=== PATIENT | female | born 1995 | race Caucasian/White ===

== ENCOUNTER 2017-11-07 21:03 | Emergency (ER) | payer OTHER ==
[~2017-11-07] VITALS: Ht 162.5 cm; Wt 104.3 kg
[~2017-11-07 21:03] MED LIST: AMOXIL500 MG PO; ATARAX25 MG PO; AUGMENTIN 875 M1 TAB PO; AUGMENTIN 875875 MG PO; BACTRIM DS 8001 TA1 PO; BENTYL2 MG/ML PO; BIRTH CONTROL1 EAC1 PO; CENTRUM1 TA1 PO; CLARITIN10 MG PO; FLUCONAZOLE100 MG PO; IBU-8800 MG PO; KEFLEX500 MG PO; LAMICTAL100 MG PO; LIDEX0.05% T; MEDROL DOSEPAK4 MG PO; MOTRIN400 MG PO; MOTRIN600 MG PO; MOTRIN800 MG PO; MULTIVITAMIN FO1 CAP PO; Motrin,Rufen800 MG PO; NASONEX0.05 MG/AC NAS; NORCO 325 MG-51 TAB PO; NORFLEX100 MG PO; Orphenadrine C100 MG PO; PEN-VEE K500 MG PO; POLY VI SOL,MUL50 ML PO; PREDNICOT20 MG PO; PREDNISONE20 M1 PO; PRISTIQ50 MG PO; SINGULAIR10 MG PO; WELLBUTRIN75 MG PO; ZITHROMAX Z PA250 MG PO; ZOFRAN ODT4 MG SL; ZOLOFT100 MG PO; [UNRECOGNIZED DRUG - OTHER]
[2017-11-07 21:10] VITALS: BP 134/84
[2017-11-07] MEDS ORDERED: TAMIFLU 75MG CA75 MG PO (21:59)
== END 2017-11-07 22:12 | disposition home or self-care (01) ==
LOC: ED 21:03
DX: B34.9 Viral infection, unspecified (principal); Z98.890 Other specified postprocedural states

== ENCOUNTER 2018-01-25 17:00 | Emergency (ER) | payer MEDICAID ==
[~2018-01-25 17:00] MED LIST changes: +TAMIFLU 75MG CA75 MG PO
[2018-01-25 17:51] LABS: BILIRUBIN NEGATIVE (NEGATIVE); BLOOD 3+ (NEGATIVE); CLARITY SL CLOUDY (CLEAR); COLOR YELLOW (YELLOW); GLUCOSE NEGATIVE (NEGATIVE); KETONE NEGATIVE (NEGATIVE); LEUKO ESTERASE NEGATIVE (NEGATIVE); NITRITE NEGATIVE (NEGATIVE); UROBILINOGEN 0.2 E.U./dl (0.2-1.0)
[2018-01-25 17:57] LABS: BASO # 0.1 10*3/uL (0.0-0.1); BASO % 0.6 % (0.0-1.0); EOS # 0.1 10*3/uL (0.0-0.4); EOS % 0.6 % (1.0-4.0); HEMATOCRIT 43.4 % (37.0-47.0); HEMOGLOBIN 14.3 g/dl (12.0-16.0); LYMPH # 3.3 10*3/uL (1.3-4.4); LYMPH % 32.1 % (27.0-41.0); MEAN CELL VOLUME 88.9 fl (81.0-99.0); MEAN CORPUSCULAR HGB 29.3 pg (27.0-31.0); MEAN CORPUSCULAR HGB CONC 32.9 g/dl (33.0-37.0); MEAN PLATELET VOLUME 10.8 fl (9.6-12.3); MONO # 0.6 10*3/uL (0.1-1.0); MONO % 5.8 % (3.0-9.0); NEUT # 6.3 10*3/uL (2.3-7.9); NEUT % 60.5 % (47.0-73.0); PLATELET COUNT AUTOMATED 328 10*3/uL (130-400); RED BLOOD COUNT 4.88 10*6/uL (4.10-5.10); RED CELL DISTRI WIDTH 12.1 % (0-14.5); WHITE BLOOD COUNT 10.4 10*3/uL (4.8-10.8)
[2018-01-25 17:58] LABS: RBC TNTC rbc/hpf (0-2); WBC 0-2 wbc/hpf (0-5)
[2018-01-25 17:59] LABS: BACTERIA TRACE
[2018-01-25 18:13] LABS: ALKALINE PHOSPHATASE 60 U/L (45-117); BUN 7 mg/dl (7-24); CHLORIDE 106 mmol/L (98-107); CREATININE 0.65 mg/dL (0.55-1.02); POTASSIUM 4.1 mmol/L (3.5-5.1); SGOT/AST 37 IU/L (3-35); SGPT/ALT 52 U/L (12-78); SODIUM 140 mmol/L (136-145); TOTAL PROTEIN 7.2 gm/dL (6.4-8.2)
[2018-01-25] MEDS ORDERED: NAPROSYN500 MG PO (18:19)
[2018-01-25 18:24] VITALS: BP 130/70
== END 2018-01-25 18:24 | disposition home or self-care (01) ==
LOC: ED 17:00
PROVIDERS: Nurse Practitioner Family
DX: N93.8 Other specified abnormal uterine and vaginal bleeding (principal); Z98.890 Other specified postprocedural states; Z79.899 Other long term (current) drug therapy

== ENCOUNTER 2019-06-10 19:45 | Emergency (ER) | payer MEDICAID ==
[~2019-06-10] VITALS: Ht 162.5 cm
[~2019-06-10 19:45] MED LIST changes: +NAPROSYN500 MG PO
[2019-06-10 19:47] VITALS: BP 139/96
[2019-06-10 20:09] LABS: BILIRUBIN NEGATIVE (NEGATIVE); BLOOD TRACE-INTACT (NEGATIVE); CLARITY SL CLOUDY (CLEAR); COLOR YELLOW (YELLOW); GLUCOSE NEGATIVE (NEGATIVE); KETONE NEGATIVE (NEGATIVE); LEUKO ESTERASE NEGATIVE (NEGATIVE); NITRITE NEGATIVE (NEGATIVE); UROBILINOGEN 0.2 E.U./dl (0.2-1.0)
[2019-06-10 20:27] LABS: BACTERIA 2+; RBC 0-2 rbc/hpf (0-2)
== END 2019-06-10 20:37 | disposition home or self-care (01) ==
LOC: ED 19:45
PROVIDERS: Nurse Practitioner Family
DX: B37.3 Candidiasis of vulva and vagina (principal); Z79.899 Other long term (current) drug therapy

== ENCOUNTER 2019-09-17 07:59 | Inpatient (IN) | payer SELFPAY ==
[~2019-09-17] VITALS: Ht 162.6 cm; Wt 140.7 kg
[2019-09-17 08:01] VITALS: BP 146/84
[2019-09-17 08:25] LABS: BASO # 0.1 10*3/uL (0.0-0.1); BASO % 0.6 % (0.0-1.0); EOS # 0.1 10*3/uL (0.0-0.4); EOS % 0.6 % (1.0-4.0); HEMATOCRIT 44.8 % (37.0-47.0); HEMOGLOBIN 14.5 g/dl (12.0-16.0); LYMPH # 3.9 10*3/uL (1.3-4.4); LYMPH % 28.5 % (27.0-41.0); MEAN CORPUSCULAR HGB 29.1 pg (27.0-31.0); MEAN CORPUSCULAR HGB CONC 32.4 g/dl (33.0-37.0); MEAN PLATELET VOLUME 11.1 fl (9.6-12.3); MONO # 0.9 10*3/uL (0.1-1.0); MONO % 6.4 % (3.0-9.0); NEUT # 8.7 10*3/uL (2.3-7.9); NEUT % 63.5 % (47.0-73.0); PLATELET COUNT AUTOMATED 356 10*3/uL (130-400); RED BLOOD COUNT 4.98 10*6/uL (4.10-5.10); RED CELL DISTRI WIDTH 12.1 % (0-14.5); WHITE BLOOD COUNT 13.7 10*3/uL (4.8-10.8)
[2019-09-17 08:26] LABS: BILIRUBIN NEGATIVE (NEGATIVE); BLOOD 3+ (NEGATIVE); CLARITY CLOUDY (CLEAR); COLOR YELLOW (YELLOW); GLUCOSE NEGATIVE (NEGATIVE); KETONE NEGATIVE (NEGATIVE); LEUKO ESTERASE NEGATIVE (NEGATIVE); NITRITE NEGATIVE (NEGATIVE); SPECIFIC GRAVITY >= 1.030 (1.005-1.030); UROBILINOGEN 0.2 E.U./dl (0.2-1.0)
[2019-09-17 08:37] LABS: BACTERIA 2+; MUCOUS 1+; RBC TNTC rbc/hpf (0-2)
[2019-09-17 08:42] LABS: ALBUMIN 3.9 gm/dl (3.1-4.5); ALKALINE PHOSPHATASE 77 U/L (45-117); BUN 10 mg/dl (7-24); CHLORIDE 108 mmol/L (98-107); CREATININE 0.79 mg/dL (0.55-1.02); LIPASE 140 U/L (73-393); POTASSIUM 3.8 mmol/L (3.5-5.1); SGOT/AST 35 IU/L (3-35); SGPT/ALT 72 U/L (12-78); SODIUM 141 mmol/L (136-145); TOTAL PROTEIN 7.5 gm/dL (6.4-8.2)
--- NOTE | 2019-09-17 09:10 | NUR ---
PT DENIES ANY ABDOMINAL PAIN AT THIS TIME, TORADOL EFFECTIVE.
--- NOTE | 2019-09-17 09:30 | NUR ---
PT RESTING COMFORTABLY IN BED WITH EYES CLOSED NO DISTRESS NOTED AT THIS TIME.
--- NOTE | 2019-09-17 10:29 | NUR ---
PT RESTING IN BED STATES "MY PAIN IS GONE AND I FEEL SO MUCH BETTER."
[2019-09-17 11:01] VITALS: BP 154/92
[2019-09-17 11:10] VITALS: BP 129/77
--- NOTE | 2019-09-17 11:10 | NUR ---
Time: 1109 A 23 year old FEMALE admitted to 5E under services of MIESHA HERNANDES DO. Pt. arrived via wheel chair from ER. Chief complaint: RUQ ABDOMINAL PAIN. CARLOZ TRAYLRO
--- NOTE | 2019-09-17 12:08 | NUR ---
DR. BERGERON ALREADY AWARE OF CONSULT.
[2019-09-17 16:00] VITALS: BP 123/65
[2019-09-17 20:00] VITALS: BP 145/91
--- NOTE | 2019-09-17 22:12 | NUR ---
TYLENOL GIVEN FOR C/O HEADACHE
[2019-09-18] VITALS: BP 128/49
--- NOTE | 2019-09-18 02:57 | NUR ---
RESTING IN BED WITH EYES CLOSED. AROUSES TO VERBAL STIMULI. DENIES COMPLAINTS OF PAIN OR DISCOMFORT AT THIS TIME. WILL CONTINUE TO MONITOR. CALL LIGHT IN REACH.
[2019-09-18 08:00] VITALS: BP 125/74
[2019-09-18 08:30] LABS: BASO # 0.1 10*3/uL (0.0-0.1); BASO % 0.8 % (0.0-1.0); EOS # 0.1 10*3/uL (0.0-0.4); HEMATOCRIT 40.6 % (37.0-47.0); HEMOGLOBIN 13.2 g/dl (12.0-16.0); LYMPH # 2.9 10*3/uL (1.3-4.4); LYMPH % 38.1 % (27.0-41.0); MEAN CELL VOLUME 90.8 fl (81.0-99.0); MEAN CORPUSCULAR HGB 29.5 pg (27.0-31.0); MEAN CORPUSCULAR HGB CONC 32.5 g/dl (33.0-37.0); MEAN PLATELET VOLUME 11.2 fl (9.6-12.3); MONO # 0.6 10*3/uL (0.1-1.0); MONO % 8.2 % (3.0-9.0); NEUT % 51.6 % (47.0-73.0); PLATELET COUNT AUTOMATED 282 10*3/uL (130-400); RED BLOOD COUNT 4.47 10*6/uL (4.10-5.10); RED CELL DISTRI WIDTH 12.4 % (0-14.5); WHITE BLOOD COUNT 7.7 10*3/uL (4.8-10.8)
[2019-09-18 08:54] LABS: ALBUMIN 3.6 gm/dl (3.1-4.5); ALKALINE PHOSPHATASE 52 U/L (45-117); BUN 7 mg/dl (7-24); CHLORIDE 109 mmol/L (98-107); CHOLESTEROL 124 mg/dL (<200); CREATININE 0.77 mg/dL (0.55-1.02); FREE T4 0.95 ng/dl (0.76-1.46); HDL CHOLESTEROL 36 mg/dl (40-60); LDL CHOLESTEROL 72 mg/dL (9-159); PHOSPHOROUS 2.9 mg/dL (2.5-4.9); POTASSIUM 3.7 mmol/L (3.5-5.1); SGOT/AST 36 IU/L (3-35); SGPT/ALT 68 U/L (12-78); SODIUM 142 mmol/L (136-145); TOTAL PROTEIN 6.7 gm/dL (6.4-8.2); TRIGLYCERIDES 80 mg/dl (<150); VLDL CHOLESTEROL 16 mg/dL (6-40)
[2019-09-18 09:51] LABS: VITAMIN D, 25-HYDROXY 15.5 ng/mL (30-100)
--- NOTE | 2019-09-18 11:06 | NUR ---
24 HR chart check completed.
--- NOTE | 2019-09-18 11:40 | NUR ---
Nutritional Support Services Note: Discussing with pt low fat diet. Diet copy given to pt. Explained rationale for diet and need for compliance. Ht.5'4 Wt. 310#. IBW 120#. Encouraged healthy eating habits, exercise and weight loss. All questions were answered. Pt eats out frequently and eats high fat foods. Encouraged follow up if needed. Rocio Guzman Rdn Ld
[2019-09-18 12:00] VITALS: BP 117/63
--- NOTE | 2019-09-18 12:00 | NUR ---
[employer] in to talk to patient. Patient states lives at HOME with BRYANT. There are FEW steps in the home. Physician: Radha SAUCEDA [facility] Home health services: NONE Patient's level of ADLs: INDEPENDENT Patient has working utilities: YES DME: NONE Follow-up physician's appointment after d/c: WILL BE MADE BY HOSPITALIST NURSE DIRECTOR ON DISCHARGE Does patient want to access PORTAL?: NO Discharge plan PT LIVES AT HOME WITH HER FIANCE AND IS INDEPENDENT IN HER CARE. PLANS TO RETURN HOME WHEN MEDICALLY STABLE. DENIES SHE WILL HAVE ANY NEEDS. WILL CONTINUE TO FOLLOW. STATES HER FIANCE WILL TAKE HER HOME ON DISCHARGE. WILL CONTINUE TO FOLLOW.. DEBRA PARIS
--- NOTE | 2019-09-18 13:19 | NUR ---
PATIENT HAS LEFT THE FLOOR ON DISCHARGE. IV TAKEN OUT. Discharge instructions reviewed with patient/family. Patient receptive and verbalizes understanding. Follow-up care arranged. Written instructions given to patient/family. TIM WHALEN
[2019-09-18] MEDS ORDERED: VITAMIN D50000 UNIT PO (13:26)
== END 2019-09-18 13:19 | disposition home or self-care (01) | DRG 445 ==
LOC: ED 07:59 → 5E 10:30 → EDHOLD 10:30 → 5E 10:55
PROVIDERS: Emergency Medicine; Registered Nurse; ADMIT Internal Medicine
DX: K80.50 Calculus of bile duct without cholangitis or cholecystitis without obstruction (principal); Z68.41 Body mass index [BMI] 40.0-44.9, adult; E44.0 Moderate protein-calorie malnutrition; K76.0 Fatty (change of) liver, not elsewhere classified; E55.9 Vitamin D deficiency, unspecified; E66.01 Morbid (severe) obesity due to excess calories; Z80.9 Family history of malignant neoplasm, unspecified; Z82.5 Family history of asthma and other chronic lower respiratory diseases

== ENCOUNTER 2019-12-12 09:47 | Emergency (ER) | payer MEDICAID ==
[~2019-12-12 09:47] MED LIST changes: +VITAMIN D50000 UNIT PO
[2019-12-12 10:00] VITALS: BP 147/85
[2019-12-12 10:33] LABS: BILIRUBIN 2+ (NEGATIVE); CLARITY CLOUDY (CLEAR); COLOR YELLOW (YELLOW); GLUCOSE NEGATIVE (NEGATIVE); KETONE 2+ (NEGATIVE)
[2019-12-12 10:34] LABS: BLOOD 1+ (NEGATIVE); LEUKO ESTERASE TRACE (NEGATIVE); NITRITE NEGATIVE (NEGATIVE); UROBILINOGEN 0.2 E.U./dl (0.2-1.0)
[2019-12-12 10:37] LABS: BASO % 0.3 % (0.0-1.0); EOS % 0.2 % (1.0-4.0); HEMATOCRIT 45.2 % (37.0-47.0); LYMPH # 1.3 10*3/uL (1.3-4.4); LYMPH % 8.6 % (27.0-41.0); MEAN CORPUSCULAR HGB 29.5 pg (27.0-31.0); MEAN CORPUSCULAR HGB CONC 33.2 g/dl (33.0-37.0); MEAN PLATELET VOLUME 11.3 fl (9.6-12.3); MONO # 0.8 10*3/uL (0.1-1.0); MONO % 5.3 % (3.0-9.0); NEUT # 12.3 10*3/uL (2.3-7.9); PLATELET COUNT AUTOMATED 316 10*3/uL (130-400); RED BLOOD COUNT 5.08 10*6/uL (4.10-5.10); RED CELL DISTRI WIDTH 12.3 % (0-14.5); WHITE BLOOD COUNT 14.5 10*3/uL (4.8-10.8)
[2019-12-12 10:45] LABS: BACTERIA 3+; EPITHELIAL CELLS 20-25; MUCOUS 3+
[2019-12-12 10:54] LABS: ALBUMIN 3.6 gm/dl (3.1-4.5); ALKALINE PHOSPHATASE 63 U/L (45-117); BUN 13 mg/dl (7-24); CHLORIDE 107 mmol/L (98-107); CREATININE 0.78 mg/dL (0.55-1.02); LIPASE 107 U/L (73-393); POTASSIUM 4.2 mmol/L (3.5-5.1); SGOT/AST 23 IU/L (3-35); SGPT/ALT 49 U/L (12-78); SODIUM 140 mmol/L (136-145)
[2019-12-12] MEDS ORDERED: CIPRO500 MG PO (12:29)
[2019-12-12] MEDS ORDERED: Motrin,Rufen800 MG PO (12:31)
== END 2019-12-12 12:37 | disposition home or self-care (01) ==
LOC: ED 09:47
PROVIDERS: Nurse Practitioner
DX: N39.0 Urinary tract infection, site not specified (principal); K80.20 Calculus of gallbladder without cholecystitis without obstruction; J45.909 Unspecified asthma, uncomplicated; Z79.899 Other long term (current) drug therapy